=== PATIENT | female | born 1970 | race American Indian/Alaskan Native ===

== ENCOUNTER 2017-11-07 13:55 | Emergency (ER) | payer SELFPAY ==
[2017-11-07] MEDS ORDERED: ASPIRIN PO ONE (14:01)
[2017-11-07 14:52] LABS: Basophils # (Auto) 0.1 K/mm3 (0.0-0.1); Basophils % (Auto) 1.9 % (0.0-1.8); Eosinophils # (Auto) 0.1 K/mm3 (0.0-0.4); Eosinophils % (Auto) 1.6 % (0.0-4.3); Hematocrit 35.8 % (30.3-42.9); Hemoglobin 11.6 gm/dl (10.1-14.3); Lymphocytes # (Auto) 1.8 K/mm3 (1.2-5.4); Lymphocytes % (Auto) 28.5 % (13.4-35.0); Mean Corpuscular HGB Conc 33 % (30-34); Mean Corpuscular Hemoglobin 27 pg (28-32); Mean Corpuscular Volume 82 fl (79-97); Monocytes # (Auto) 0.4 K/mm3 (0.0-0.8); Platelet Count 230 K/mm3 (140-440); Red Blood Count 4.37 M/mm3 (3.65-5.03); Red Cell Distribution Width 16.6 % (13.2-15.2)
[2017-11-07 14:53] LABS: INR 0.99 (0.87-1.13)
[2017-11-07 14:54] LABS: BUN/Creatinine Ratio 27; Blood Urea Nitrogen 19 mg/dL (7-17); Calcium 9.1 mg/dL (8.4-10.2); Hemolysis Index 0
--- NOTE | 2017-11-07 15:00 | XRay Report ---
FINAL REPORT EXAM: XR CHEST ROUTINE 2V HISTORY: cp, sob TECHNIQUE: Two views of the chest were performed Comparison: None FINDINGS: Normal heart size. Lungs are clear and well expanded without focal infiltrate or consolidation. There is degenerative spurring of the dorsal vertebral bodies. There are no effusions. The bones are dense. IMPRESSION: No acute cardiopulmonary disease identified. Diffusely dense bones. This may be physiologic/normal anatomic variant but correlate for other causes for dense bones. Degenerative spurring of the dorsal vertebral bodies.
[2017-11-07] MEDS ORDERED: NITROSTAT SL ONE (15:40)
--- NOTE | 2017-11-07 15:45 | Emergency Department Report ---
ED Chest Pain HPI - General Chief Complaint: Chest Pain Stated Complaint: CP Time Seen by Provider: 11/07/17 15:35 Source: patient Mode of arrival: Ambulatory Limitations: No Limitations - History of Present Illness Initial Comments: Patient is 47 years old female history of diabetes and hypertension and obesity. Patient presented to the ER complaining of left-sided chest pain for the last 4 days. Patient describes her pain as pressure radiating to her left arm and neck. Patient rated her pain as 8 out of 10. Patient stated that she never had any pain like this before. She denied any shortness of breath, cough or fever. No history of coronary artery disease before. MD Complaint: chest pain - Related Data Allergies Allergy/AdvReac Type Severity Reaction Status Date / Time No Known Allergies Allergy Unverified 11/07/17 14:01 Heart Score - HEART Score History: Moderately suspicious EKG: Non-specific Age: 45-65 Risk factors: > 3 risk factors or hx of atherosclerotic disease Troponin: < normal limit HEART Score: 5 - Critical Actions Critical Actions: 4-6 pts:12-16.6% risk of adverse cardiac event. Should be admitted ED Review of Systems ROS: Stated complaint: CP Other details as noted in HPI Comment: All other systems reviewed and negative Constitutional: denies: chills, fever Respiratory: denies: cough, orthopnea, shortness of breath, SOB with exertion, SOB at rest, wheezing Cardiovascular: chest pain. denies: palpitations, dyspnea on exertion, orthopnea Gastrointestinal: denies: abdominal pain, nausea, vomiting, diarrhea, constipation, hematemesis, melena, hematochezia Neurological: denies: headache, weakness, numbness, paresthesias ED Past Medical Hx - Past Medical History Previous Medical History?: Yes Hx Hypertension: Yes Hx Diabetes: Yes - Surgical History Additional Surgical History: Knee surgery - Social History Smoking Status: Never Smoker Substance Use Type: None ED Physical Exam - General Limitations: No Limitations General appearance: alert, in no apparent distress - Head Head exam: Present: atraumatic, normocephalic, normal inspection - ENT ENT exam: Present: normal exam, normal orophraynx, mucous membranes moist, TM's normal bilaterally - Neck Neck exam: Present: normal inspection, full ROM. Absent: tenderness, meningismus, lymphadenopathy, thyromegaly - Respiratory Respiratory exam: Present: normal lung sounds bilaterally. Absent: respiratory distress, wheezes, rales, rhonchi - Cardiovascular Cardiovascular Exam: Present: regular rate, normal rhythm, normal heart sounds - GI/Abdominal GI/Abdominal exam: Present: soft, normal bowel sounds. Absent: distended, tenderness, guarding, rebound, rigid, organomegaly, mass, bruit, pulsatile mass , hernia - Extremities Exam Extremities exam: Present: normal inspection, full ROM, normal capillary refill. Absent: tenderness, pedal edema, joint swelling, calf tenderness - Back Exam Back exam: Present: normal inspection. Absent: full ROM, tenderness, CVA tenderness (R), CVA tenderness (L), muscle spasm, paraspinal tenderness, vertebral tenderness, rash noted - Neurological Exam Neurological exam: Present: alert, oriented X3, CN II-XII intact, normal gait, reflexes normal - Skin Skin exam: Present: warm, intact, normal color ED Course Vital Signs 11/07/17 13:58 Temperature 98.2 F Pulse Rate 71 Respiratory 18 Rate Blood Pressure 138/86 O2 Sat by Pulse 98 Oximetry ED Medical Decision Making - Lab Data Result diagrams: 11/07/17 14:03 11/07/17 14:03 - EKG Data -: EKG Interpreted by Nd EKG shows normal: sinus rhythm Rate: normal - EKG Data Interpretation: no acute changes - Radiology Data Radiology results: report reviewed Chest x-ray is unremarkable. - Medical Decision Making I discussed the patient with Dr. Rosales, he agreed to admit to his service. Critical care attestation.: If time is entered above; I have spent that time in minutes in the direct care of this critically ill patient, excluding procedure time. ED Disposition Clinical Impression: Chest pain Disposition: DC-09 OP ADMIT IP TO THIS HOSP Is pt being admited?: Yes Condition: Stable Instructions: Chest Pain (ED) Referrals: PRIMARY CARE, [Primary Care Provider] - 3-5 Days
[2017-11-07] MEDS ORDERED: PROTONIX PO ONE (16:00)
--- NOTE | 2017-11-07 18:23 | Cat Scan Report ---
FINAL REPORT PROCEDURE: CT ANGIO CHEST TECHNIQUE: Computerized tomographic angiography of the chest was performed during the IV injection of iodinated nonionic contrast including image processing. The image data was postprocessed using 2-dimensional multiplanar reformatted (MPR) and 3-dimensional (MIP and/or volume rendered) techniques. HISTORY: dypsnea COMPARISON: No prior studies are available for comparison. FINDINGS: Pulmonary outflow tract, right and left main pulmonary arteries and their proximal branches: Clear, no filling defects seen to suggest pulmonary embolus. Pericardium: No evidence of pericardial effusion. Thoracic aorta: No evidence of aneurysmal dilatation or dissection. Coronary arteries: Are unremarkable. Mediastinum and hilar regions: Nonspecific subcentimeter lymph nodes are visualized. No pathologically enlarged lymph nodes or masses are identified. Lung Kramer: There is mild fibrosis medially in the right lower lobe. Lungs otherwise are clear. No infiltrates masses or consolidations are seen. No evidence of pleural effusion pneumothorax. Upper abdomen: No acute or focal abnormality is seeen. Other: No acute bony abnormalities are identified IMPRESSION: No evidence of pulmonary embolus. Minimal fibrosis seen inferior aspect right lower lobe medial.
--- NOTE | 2017-11-07 18:26 | History and Physical Report ---
Medications and Allergies Allergies Allergy/AdvReac Type Severity Reaction Status Date / Time No Known Allergies Allergy Unverified 11/07/17 14:01 Exam - Constitutional Vitals: Temp Pulse Resp BP Pulse Ox 98.2 F 71 18 138/86 98 11/07/17 13:58 11/07/17 13:58 11/07/17 13:58 11/07/17 13:58 11/07/17 13:58 Results - Labs CBC & Chem 7: 11/07/17 14:03 11/07/17 14:03 Labs: Abnormal lab results 11/07/17 11/07/17 11/07/17 Range/Units 14:03 14:03 16:29 MCH 27 L (28-32) pg RDW 16.6 H (13.2-15.2) % Baso % (Auto) 1.9 H (0.0-1.8) % D-Dimer 272.05 H (0-234) ng/mlDDU BUN 19 H (7-17) mg/dL Lipase (13-60) units/L 11/07/17 Range/Units 16:29 MCH (28-32) pg RDW (13.2-15.2) % Baso % (Auto) (0.0-1.8) % D-Dimer (0-234) ng/mlDDU BUN (7-17) mg/dL Lipase 70 H (13-60) units/L
[2017-11-07 19:45] VITALS: BP 98/42
== END 2017-11-07 19:51 | disposition admitted as inpatient to this hospital (09) ==
LOC: ED 13:55
DX: R07.89 Other chest pain (principal); I10 Essential (primary) hypertension; E11.9 Type 2 diabetes mellitus without complications
CPT/HCPCS: 36415; 71046; 71275; 80048; 83690; 84484; 84703; 85025; 85379; 85610; 93005; 93010; 99285; Q9967

== ENCOUNTER 2018-07-24 11:41 | Emergency (ER) | payer OTHER, SELFPAY ==
[2018-07-24 11:49] VITALS: BP 160/82
--- NOTE | 2018-07-24 11:49 | Emergency Department Report ---
Chief Complaint: Upper Respiratory Infection Stated Complaint: FLU Time Seen by Provider: 07/24/18 11:46 - HPI History of Present Illness: anemia htn hpld seasonal allergies DM csec x 3 knee bilateral rx lisinopril loratidine flonase iron lantus statin did get flu shot this year cc ache, cough with yellow sputum, no fever no cig/etoh perimenopausal 3-6 for 2 days VSS No life threat identified. MSE screening note: Focused history and physical exam performed. Due to findings the following was ordered: ED Disposition for MSE Condition: Stable
--- NOTE | 2018-07-24 11:58 | Emergency Department Report ---
- General Chief Complaint: Upper Respiratory Infection Stated Complaint: FLU Time Seen by Provider: 07/24/18 11:46 Source: patient Mode of arrival: Ambulatory Limitations: No Limitations - History of Present Illness Initial Comments: Patient is 48 years old female with history of hypertension and anemia. Patient presented to the ER complaining of cough, productive with greenish sputum. Also complaining of nasal congestion and generalized body ache. Patient denied any fever or chills. No nausea or vomiting. No shortness of breath or chest pain. MD Complaint: cough, nasal congestion - Related Data Previous Rx's Medication Instructions Recorded Last Taken Type Pantoprazole [Protonix] 40 mg PO QDAY #30 tablet 11/07/17 Unknown Rx Allergies Allergy/AdvReac Type Severity Reaction Status Date / Time No Known Allergies Allergy Unverified 11/07/17 14:01 ED Review of Systems ROS: Stated complaint: FLU Other details as noted in HPI Comment: All other systems reviewed and negative Constitutional: denies: chills, fever Respiratory: cough. denies: orthopnea, shortness of breath, SOB with exertion, SOB at rest, stridor, wheezing Cardiovascular: denies: chest pain, palpitations, dyspnea on exertion Gastrointestinal: denies: abdominal pain, nausea, vomiting, diarrhea, constipation, hematemesis, melena, hematochezia Musculoskeletal: denies: back pain Neurological: denies: headache, weakness, numbness, paresthesias, confusion, abnormal gait ED Past Medical Hx - Past Medical History Previous Medical History?: Yes Hx Hypertension: Yes Hx Diabetes: Yes - Surgical History Past Surgical History?: Yes Additional Surgical History: Knee surgery - Social History Smoking Status: Never Smoker Substance Use Type: None - Medications Home Medications: Home Medications Medication Instructions Recorded Confirmed Last Taken Type Pantoprazole [Protonix] 40 mg PO QDAY #30 tablet 11/07/17 Unknown Rx ED Physical Exam - General Limitations: No Limitations General appearance: alert, in no apparent distress - Head Head exam: Present: atraumatic, normocephalic, normal inspection - Eye Eye exam: Present: normal appearance, PERRL - ENT ENT exam: Present: normal exam, normal orophraynx, mucous membranes moist - Neck Neck exam: Present: normal inspection, full ROM. Absent: tenderness, meningismus, lymphadenopathy, thyromegaly - Respiratory Respiratory exam: Present: normal lung sounds bilaterally. Absent: respiratory distress, wheezes, rales, rhonchi, stridor, chest wall tenderness, accessory muscle use, decreased breath sounds, prolonged expiratory - Cardiovascular Cardiovascular Exam: Present: regular rate, normal rhythm, normal heart sounds - GI/Abdominal GI/Abdominal exam: Present: soft, normal bowel sounds. Absent: distended, tenderness, guarding, rebound, rigid, organomegaly, mass, bruit, pulsatile mass, hernia - Extremities Exam Extremities exam: Present: normal inspection, full ROM, normal capillary refill - Back Exam Back exam: Present: normal inspection, full ROM. Absent: tenderness, CVA tenderness (R), CVA tenderness (L), muscle spasm, paraspinal tenderness, vertebral tenderness - Neurological Exam Neurological exam: Present: alert, oriented X3, CN II-XII intact, normal gait, reflexes normal - Skin Skin exam: Present: warm, intact, normal color ED Course Vital Signs 07/24/18 11:47 Temperature 97.6 F Pulse Rate 80 Respiratory 16 Rate Blood Pressure 160/82 O2 Sat by Pulse 98 Oximetry ED Medical Decision Making - Radiology Data Radiology results: report reviewed Chest x-ray is negative for acute finding. Critical care attestation.: If time is entered above; I have spent that time in minutes in the direct care of this critically ill patient, excluding procedure time. ED Disposition Clinical Impression: Acute bronchitis Disposition: - TO HOME OR SELFCARE Is pt being admited?: No Condition: Stable Instructions: Acute Bronchitis (ED) Referrals: PRIMARY CARE, [Primary Care Provider] - 3-5 Days
--- NOTE | 2018-07-24 12:48 | XRay Report ---
PROCEDURE: XR CHEST ROUTINE 2V HISTORY: cough COMPARISONS: 11/07/2017 FINDINGS: Normal cardiomediastinal silhouette. No focal infiltrate, CHF changes, mass or pleural effusion. No pneumothorax. Multileveled degenerative endplate osteophytosis throughout the thoracic spine. IMPRESSION: 1. Unremarkable chest x-ray. This document is electronically signed by Elvira Dove MD., July 24 2018 12:46:34 PM ET
== END 2018-07-24 13:05 | disposition home or self-care (01) ==
LOC: ED 11:41
DX: J20.9 Acute bronchitis, unspecified (principal); I10 Essential (primary) hypertension; E11.9 Type 2 diabetes mellitus without complications; Z86.2 Personal history of diseases of the blood and blood-forming organs and certain disorders involving the immune mechanism
CPT/HCPCS: 71046; 99283

== ENCOUNTER 2019-08-08 06:10 | Emergency (ER) | payer SELFPAY ==
[2019-08-08 06:51] LABS: Basophils # (Auto) 0.1 K/mm3 (0.0-0.1); Basophils % (Auto) 1.4 % (0.0-1.8); Eosinophils # (Auto) 0.1 K/mm3 (0.0-0.4); Eosinophils % (Auto) 2.6 % (0.0-4.3); Hematocrit 30.3 % (30.3-42.9); Hemoglobin 9.1 gm/dl (10.1-14.3); Lymphocytes # (Auto) 1.1 K/mm3 (1.2-5.4); Lymphocytes % (Auto) 21.4 % (13.4-35.0); Mean Corpuscular HGB Conc 30 % (30-34); Mean Corpuscular Volume 69 fl (79-97); Monocytes # (Auto) 0.4 K/mm3 (0.0-0.8); Monocytes % (Auto) 7.7 % (0.0-7.3); Platelet Count 183 K/mm3 (140-440); Red Blood Count 4.39 M/mm3 (3.65-5.03); Red Cell Distribution Width 19.5 % (13.2-15.2)
[2019-08-08 07:04] LABS: BUN/Creatinine Ratio 17; Blood Urea Nitrogen 10 mg/dL (7-17); Calcium 8.8 mg/dL (8.4-10.2); Hemolysis Index 2
[2019-08-08] MEDS ORDERED: LISINOPRIL 20 MG TAB ONE (07:05)
[2019-08-08] MEDS ORDERED: LISINOPRIL 20 MG TAB PO ONE (07:07)
--- NOTE | 2019-08-08 08:07 | XRay Report ---
CHEST 2 VIEWS INDICATION / CLINICAL INFORMATION: Chest pain. COMPARISON: 07/24/2018. FINDINGS: SUPPORT DEVICES: None. HEART / MEDIASTINUM: No significant abnormality. LUNGS / PLEURA: No significant pulmonary or pleural abnormality. No pneumothorax. ADDITIONAL FINDINGS: No significant additional findings. IMPRESSION: 1. No acute findings. Signer Name: Corey Awad MD Signed: 08/08/2019 8:03 AM Workstation Name: [id number]
--- NOTE | 2019-08-08 08:12 | Emergency Department Report ---
ED General Adult HPI - General Chief complaint: Chest Pain Stated complaint: AJ/L ARM PAIN Time Seen by Provider: 08/08/19 08:07 Source: patient Mode of arrival: Ambulatory Limitations: No Limitations - History of Present Illness Initial comments: Mrs. Guy is a 49-year-old female with history of severe obesity, hypertension, diabetes mellitus who presents with "migraine headache" and left arm tingling. She has bitemporal dull headache 7 out of 10. Left arm tingling. Symptoms have been present for 1 week. Currently denies fever cough or sick contact exposure. Denies travel. Has intermittent headaches. -: Gradual, week(s) (1) Location: head, left, upper extremity Consistency: constant Improves with: none Worsens with: none Associated Symptoms: denies other symptoms Treatments Prior to Arrival: none - Related Data Previous Rx's Medication Instructions Recorded Last Taken Type Pantoprazole [Protonix] 40 mg PO QDAY #30 tablet 11/07/17 Unknown Rx Amoxicillin [Amoxicillin TAB] 875 mg PO BID #14 tablet 07/24/18 Unknown Rx guaiFENesin/CODEINE [Robitussin AC] 10 ml PO TID PRN #100 ml 07/24/18 Unknown Rx lisinopriL [Zestril TAB] 40 mg PO QDAY 90 Days #90 tablet 08/08/19 Unknown Rx Allergies Allergy/AdvReac Type Severity Reaction Status Date / Time No Known Allergies Allergy Unverified 11/07/17 14:01 ED Review of Systems ROS: Stated complaint: JA/L ARM PAIN Other details as noted in HPI Comment: All other systems reviewed and negative Constitutional: denies: fever, malaise Respiratory: denies: cough, shortness of breath Cardiovascular: denies: chest pain ED Past Medical Hx - Past Medical History Previous Medical History?: Yes Hx Hypertension: Yes Hx Diabetes: Yes Additional medical history: High Cholesterol, Seasonal Allergies - Surgical History Past Surgical History?: Yes Additional Surgical History: Knee surgery - Social History Smoking Status: Never Smoker - Medications Home Medications: Home Medications Medication Instructions Recorded Confirmed Last Taken Type Pantoprazole [Protonix] 40 mg PO QDAY #30 tablet 11/07/17 Unknown Rx Amoxicillin [Amoxicillin TAB] 875 mg PO BID #14 tablet 07/24/18 Unknown Rx guaiFENesin/CODEINE [Robitussin AC] 10 ml PO TID PRN #100 ml 07/24/18 Unknown Rx lisinopriL [Zestril TAB] 40 mg PO QDAY 90 Days #90 tablet 08/08/19 Unknown Rx ED Physical Exam - General Limitations: No Limitations General appearance: alert, in no apparent distress - Head Head exam: Present: atraumatic, normocephalic - Eye Eye exam: Present: normal appearance - ENT ENT exam: Present: mucous membranes moist - Neck Neck exam: Present: normal inspection - Respiratory Respiratory exam: Present: normal lung sounds bilaterally. Absent: respiratory distress - Cardiovascular Cardiovascular Exam: Present: regular rate, normal rhythm, normal heart sounds. Absent: systolic murmur, diastolic murmur, rubs, gallop - GI/Abdominal GI/Abdominal exam: Present: soft, normal bowel sounds. Absent: distended, tenderness, guarding, rebound - Extremities Exam Extremities exam: Present: normal inspection - Back Exam Back exam: Present: normal inspection - Neurological Exam Neurological exam: Present: alert, oriented X3 - Psychiatric Psychiatric exam: Present: normal affect, normal mood - Skin Skin exam: Present: warm, dry, intact, normal color. Absent: rash ED Course Vital Signs 08/08/19 08/08/19 06:14 07:08 Temperature 98.4 F Pulse Rate 86 86 Respiratory 16 Rate Blood Pressure 192/104 192/104 O2 Sat by Pulse 95 Oximetry ED Medical Decision Making - Lab Data Result diagrams: 08/08/19 06:42 08/08/19 06:42 Laboratory Results - last 24 hr 08/08/19 08/08/19 06:42 06:42 WBC 5.1 RBC 4.39 Hgb 9.1 L Hct 30.3 MCV 69 L MCH 21 L MCHC 30 RDW 19.5 H Plt Count 183 Lymph % (Auto) 21.4 [place] % (Auto) 7.7 H Eos % (Auto) 2.6 Baso % (Auto) 1.4 Lymph # 1.1 L [place] # 0.4 Eos # 0.1 Baso # 0.1 Seg Neutrophils % 66.9 Seg Neutrophils # 3.4 Sodium 136 L Potassium 4.4 Chloride 102.1 Carbon Dioxide 22 Anion Gap 16 BUN 10 Creatinine 0.6 L Estimated GFR > 60 BUN/Creatinine Ratio 17 Glucose 182 H Calcium 8.8 Troponin T < 0.010 - EKG Data EKG shows normal: sinus rhythm, axis, intervals, QRS complexes, ST-T waves Rate: normal - EKG Data Interpretation: normal EKG - Radiology Data Radiology results: report reviewed Chest radiograph no acute findings according to radiology report. - Medical Decision Making Clinical impression tension headache, differential diagnosis includes pseudotu mor cerebri and migraine headache. Referred to neurologist. Strongly recommended lifestyle modification including exercise nutrition weight loss Left arm paresthesias: Do not suspect ACS or cervical radiculopathy. Patient strongly urged to follow-up with primary care physician. Hypertensive urgency recommended outpatient medicine physician increase lisinopril to 40 mg from 20 mg. Critical care attestation.: If time is entered above; I have spent that time in minutes in the direct care of this critically ill patient, excluding procedure time. ED Disposition Clinical Impression: Tension headache, Hypertensive urgency, Tingling of left upper extremity Disposition: DC-01 TO HOME OR SELFCARE Is pt being admited?: No Does the pt Need Aspirin: No Condition: Stable Additional Instructions: Please see our neurologist. Your lisinopril has been increased from 20 mg to 40 mg. Prescriptions: lisinopriL [Zestril TAB] 40 mg PO QDAY 90 Days #90 tablet Referrals: EDITH DELGADO MD [Staff Physician] - 3-5 Days
[2019-08-08 08:32] VITALS: BP 167/87
== END 2019-08-08 09:13 | disposition home or self-care (01) ==
LOC: ED 06:10
DX: I16.0 Hypertensive urgency (principal); R20.2 Paresthesia of skin; R51 Headache; E66.9 Obesity, unspecified; E11.9 Type 2 diabetes mellitus without complications; I10 Essential (primary) hypertension; E78.00 Pure hypercholesterolemia, unspecified; Z68.38 Body mass index [BMI] 38.0-38.9, adult; Z79.899 Other long term (current) drug therapy; Z98.890 Other specified postprocedural states
CPT/HCPCS: 36415; 71046; 80048; 84484; 85025; 93005; 93010